=== PATIENT | male | born 1950 | race Caucasian/White ===

== ENCOUNTER 2024-12-04 08:30 | Emergency (ER) | payer MEDICARE, SELFPAY ==
[2024-12-04 08:35] VITALS: BP 160/104; PULSE 68; TEMP 36.6; O2SAT 98; BMI 31.3
--- NOTE | 2024-12-04 08:53 | CT_ITS ---
The [address] [address] Patient Name: ESTRELLA MARTINEZ MRN: [id number] date: 1950 Sex: M Assigned Patient Location: ED.MAIN Current Patient Location: ED.MAIN Accession/Order Number: [id number] Exam Date: 12/04/2024 10:12 Report Date: 12/04/2024 10:16 At the request of: LINDSAY YIN MD Procedure: CT abdomen pelvis wo con CT ABDOMEN AND PELVIS WITHOUT INTRAVENOUS CONTRAST: CLINICAL HISTORY: left flank pain, r/o stone COMPARISON: None TECHNIQUE: Spiral images were obtained through the abdomen and pelvis without intravenous contrast. This CT exam was performed using one or more following dose reduction techniques: Automated exposure control, adjustment of the mA and/or kV according to patient size, or use of iterative reconstruction technique. FINDINGS: Lung Bases: [Mildly irregular atelectasis or scarring. Lung bases otherwise grossly clear.] Coronary artery disease. Organs:Mild left-sided hydroureteronephrosis caused by a left-sided proximal ureteral calculus at level of left ureteral pelvic junction this measures 4 x 6 mm in size. Additional left lower pole calculus 2 to 3 mm in size, nonobstructive. 2 mm right lower pole calculus. No right-sided hydronephrosis. Otherwise kidneys symmetric in size. Otherwise liver, spleen, adrenals, pancreas unremarkable. GI: Mild retained stool throughout the colon. No bowel obstruction. Colonic diverticulosis. Appendix unremarkable.[ Pelvis:[Bladder unremarkable. Prostate mildly enlarged. Small fat-containing inguinal hernias.] Peritoneum/Retroperitoneum:No free air or free fluid. Moderate plaque involving the nonaneurysmal aorta[ Abd wall/Bones:Anterolisthesis L4-L5 noted. Multilevel facet arthropathy noted.[ CT/CT abdomen pelvis wo con IMPRESSION: Mild left-sided hydronephrosis caused by a left ureteral pelvic junction calculus 6 x 4 mm in size. Additional bilateral calculi, nonobstructive. Impression dictated by: Connor Madsen M.D. 12/04/2024 10:16 AM Dictation Location: [place] [address] Electronically authenticated by: [id number] Y Date: 12/04/2024 10:16
--- NOTE | 2024-12-04 08:53 | ED.GENADUL1 ---
HPI HPI - General Adult General Chief complaint: Back Pain/Injury Stated complaint: L SIDE FLANK PAIN Time Seen by Provider: 12/04/24 08:48 Source: patient Mode of arrival: walk-in History of Present Illness HPI narrative: 74-year-old male presents to the emergency department for left flank pain. It started again this morning. On November 23 he was in [place] and was diagnosed with 3 kidney stones and he passed 1. Now he is This left flank pain which is moderate and continuous. No nausea. No injury or gross hematuria. No fever or vomiting. Related Data Home Medications ?Medication ?Instructions ?Recorded ?Confirmed atorvastatin 40 mg tablet 40 mg PO DAILY 12/04/24 12/04/24 indomethacin 25 mg capsule 25 mg PO BID 12/04/24 12/04/24 metoprolol succinate 25 mg 25 mg PO DAILY 12/04/24 12/04/24 tablet,extended release 24 hr rivaroxaban 20 mg tablet (Xarelto) 20 mg PO DAILY 12/04/24 12/04/24 timolol 0.5 % eye drops (Betimol) 1 drp ophthalmic (eye) DAILY 12/04/24 12/04/24 Previous Rx's ?Medication ?Instructions ?Recorded ondansetron 4 mg disintegrating 4 mg PO Q6H PRN nausea and 12/04/24 tablet vomiting #20 tabs oxycodone-acetaminophen 5 mg-325 1 tab PO Q6H PRN pain 5 days #20 12/04/24 mg tablet (Percocet) tabs tamsulosin 0.4 mg capsule (Flomax) 0.4 mg PO DAILY #7 caps 12/04/24 Allergies Allergy/AdvReac Type Severity Reaction Status Date / Time rubber, unspecified Allergy rash Verified 12/04/24 08:40 Opioid HPI Opioid Management Most Recent Opioid Data: Last AUG Pain Assessment 12/04/24, 08:58 Review of Systems ROS Narrative A ten point review of systems is negative except as noted above. PFSH PFSH Social History Little interest or pleasure in doing things: not at all Feeling down, depressed, or hopeless: not at all Exam Narrative Exam Narrative: Nurses note and vital signs reviewed and patient is not hypoxic. General: The patient appears in no acute distress. He is hard of hearing Skin: Warm, dry, no pallor noted. There is no rash noted. Head: Normocephalic, atraumatic Eye: Normal conjunctiva, no drainage Ears, Nose, Mouth, and Throat: oral mucosa is moist. Nares patent. Cardiovascular: Regular Rate and Rhythm Respiratory: Patient is in no distress, no accessory muscle use, lungs are clear to auscultation, no wheezing, rales or rhonchi Back: non-tender, no CVA tenderness bilaterally to percussion. GI: Soft and nontender Musculoskeletal: The patient has no evidence of calf tenderness, no pitting edema, symmetrical pulses noted bilaterally Neurological: Awake and alert Psychiatric: Cooperative Constitutional Vital Signs, click to edit/add: Last Vital Signs Temp 98 F 12/04/24 08:35 Pulse 68 12/04/24 08:35 Resp 16 12/04/24 12:20 BP 172/90 H 12/04/24 12:20 Pulse Ox 96 12/04/24 12:20 O2 Del Method Room Air 12/04/24 12:20 Course Vital Signs Vital signs: Vital Signs Temperature 98 F 12/04/24 08:35 Pulse Rate 68 12/04/24 08:35 Respiratory Rate 20 12/04/24 08:35 Blood Pressure 160/104 H 12/04/24 08:35 Pulse Oximetry 98 12/04/24 08:35 Oxygen Delivery Method Room Air 12/04/24 08:35 Temperature 98 F 12/04/24 08:35 Pulse Rate 68 12/04/24 08:35 Respiratory Rate 16 12/04/24 12:20 Blood Pressure 172/90 H 12/04/24 12:20 Pulse Oximetry 96 12/04/24 12:20 Oxygen Delivery Method Room Air 12/04/24 12:20 Medical Decision Making MDM Narrative Medical decision making narrative: Proximal left-sided stone is identified. We have gotten his pain under control and he is being discharged home on Flomax and Percocet and Zofran. He will follow-up with his urologist in [place] or return here if symptoms worsen. Treatment diagnosis and follow-up were discussed with the patient and his . Differential Diagnosis Differential Diagnosis: Kidney stone, urinary tract infection Lab Data Lab results reviewed: Yes I reviewed the patient's lab results Labs: Lab Results 12/04/24 12/04/24 Range/Units 08:46 09:25 WBC 10.3 (4.0-11.0) 10^3/uL RBC 5.15 (4.70-6.10) 10^6/uL Hgb 15.7 (14.0-18.0) g/dL Hct 47.2 (42.0-54.0) % MCV 91.7 (80.0-94.0) fL MCH 30.5 (25.9-34.0) pg MCHC 33.3 (29.9-35.2) g/dL RDW 13.4 (11.0-15.0) % Plt Count 176 (150-450) 10^3/uL MPV 9.7 (9.5-13.5) fL Neut % (Auto) 79.8 H (43.0-75.0) % Lymph % (Auto) 7.8 L (20.5-60.0) % [place] % (Auto) 10.0 (1.7-12.0) % Eos % (Auto) 1.4 (0.9-7.0) % Baso % (Auto) 0.6 (0.2-2.0) % Neut # (Auto) 8.2 H (1.4-6.5) 10^3/uL Lymph # (Auto) 0.8 L (1.2-3.8) 10^3/uL [place] # (Auto) 1.0 H (0.3-0.8) 10^3/uL Eos # (Auto) 0.1 (0.0-0.7) 10^3/uL Baso # (Auto) 0.1 (0.0-0.1) 10^3/uL Abs Immat Gran (auto) 0.04 H (0.00-0.03) 10^3/uL Imm/Tot Granulo (auto) 0.4 (0.0-0.5) % Sodium 140 (136-145) mmol/L Potassium 4.7 (3.5-5.1) mmol/L Chloride 103 (98-107) mmol/L Carbon Dioxide 27.8 (21.0-32.0) mmol/L Anion Gap 13.9 BUN 21.0 H (7.0-18.0) mg/dL Creatinine 1.21 (0.70-1.30) mg/dL Est GFR ( Amer) >60 (>=60 mL/min/1.73m^2) Est GFR (Non-Af Amer) 59 L (>=60 mL/min/1.73m^2) BUN/Creatinine Ratio 17.4 Glucose 140 H (74-106) mg/dL Calcium 9.6 (8.5-10.1) mg/dL Urine Color Lt. yellow (YELLOW) Urine Clarity Clear (CLEAR) Urine pH 6.0 (5.0-9.0) Ur Specific [place] 1.020 (1.005-1.025) Urine Protein Negative (NEG/TRACE) mg/dL Urine Glucose (UA) Negative (NEGATIVE) mg/dL Urine Ketones Negative (NEGATIVE) mg/dL Urine Occult Blood Moderate A (NEGATIVE) Urine Nitrite Negative (NEGATIVE) Urine Bilirubin Negative (NEGATIVE) Urine Urobilinogen 0.2 (0.2-1.0) EU/dL Ur Leukocyte Esterase Negative (NEGATIVE) Urine RBC 10-20 A (0-2) #/HPF Urine WBC None seen (NONE SEEN) #/HPF Ur Squamous Epith Cells None seen (NONE/RARE) #/LPF Urine Crystals None seen (None Seen) #/HPF Urine Bacteria Trace A (NONE SEEN) #/HPF Urine Casts None seen (NONE SEEN) #/LPF Urine Mucus None seen (NONE SEEN) Ur Culture Indicated? No Imaging Data CT scan - abdomen: Radiologist's impression: ITS Impressions Abdomen/Pelvis CT 12/04/24 08:53 IMPRESSION: Mild left-sided hydronephrosis caused by a left ureteral pelvic junction calculus 6 x 4 mm in size. Additional bilateral calculi, nonobstructive. Impression dictated by: Connor Madsen M.D. 12/04/2024 10:16 AM Dictation Location: [place] [address] Electronically authenticated by: [id number] Y Date: 12/04/2024 10:16 Discharge Plan Discharge Chief Complaint: Back Pain/Injury Clinical Impression: Kidney stone Patient Disposition: Home, Self-Care Time of Disposition Decision: 11:56 Condition: Good Mode of Transportation: Private Vehicle Prescriptions / Home Meds: New oxycodone-acetaminophen [Percocet] 5-325 mg tablet 1 tab PO Q6H PRN (Reason: pain) 5 Days Qty: 20 0RF tamsulosin [Flomax] 0.4 mg capsule 0.4 mg PO DAILY Qty: 7 0RF ondansetron 4 mg tablet,disintegrating 4 mg PO Q6H PRN (Reason: nausea and vomiting) Qty: 20 0RF No Action indomethacin 25 mg capsule 25 mg PO BID Rx Instructions: administer with food or milk metoprolol succinate 25 mg tablet extended release 24 hr 25 mg PO DAILY atorvastatin 40 mg tablet 40 mg PO DAILY timolol [Betimol] 0.5 % drops 1 drp ophthalmic (eye) DAILY Xarelto 20 mg tablet 20 mg PO DAILY Rx Instructions: must administer with evening meal Print Language: Spanish Instructions: Kidney Stones (ED), How to Strain Your Urine (ED) Additional Instructions: Follow-up with your urologist. Return to ED if symptoms worsen. Referrals: ANNA COHEN [Physician, Unknown] - 1 week Discharge Date/Time: 12/04/24 12:21
[2024-12-04] MEDS: MORPHINE SULFATE 4 MG/ML VIAL IV ×2 (08:58→09:50)
[2024-12-04 09:11] LABS: Basophils Absolute Auto 0.1 10^3/uL (0.0-0.1); Basophils Percent Auto 0.6 % (0.2-2.0); Eosinophils Absolute Auto 0.1 10^3/uL (0.0-0.7); Eosinophils Percent Auto 1.4 % (0.9-7.0); Hematocrit 47.2 % (42.0-54.0); Hemoglobin 15.7 g/dL (14.0-18.0); Immature Granulocytes Abs Auto 0.04 10^3/uL (0.00-0.03); Immature Granulocytes Pct Auto 0.4 % (0.0-0.5); Lymphocytes Absolute Auto 0.8 10^3/uL (1.2-3.8); Lymphocytes Percent Auto 7.8 % (20.5-60.0); Mean Corpuscular HGB Conc 33.3 g/dL (29.9-35.2); Mean Corpuscular Hemoglobin 30.5 pg (25.9-34.0); Mean Corpuscular Volume 91.7 fL (80.0-94.0); Mean Platelet Volume 9.7 fL (9.5-13.5); Neutrophils Absolute Auto 8.2 10^3/uL (1.4-6.5); Neutrophils Percent Auto 79.8 % (43.0-75.0); Platelet Count 176 10^3/uL (150-450); Red Blood Count 5.15 10^6/uL (4.70-6.10); Red Cell Distribution Width 13.4 % (11.0-15.0); White Blood Count 10.3 10^3/uL (4.0-11.0)
[2024-12-04 09:19] LABS: Anion Gap 13.9; BUN Creatinine Ratio 17.4; Calcium 9.6 mg/dL (8.5-10.1); Carbon Dioxide 27.8 mmol/L (21.0-32.0); Chloride 103 mmol/L (98-107); Estimated GFR (African America >60 (>=60 mL/min/1.73m^2); Estimated GFR (Non-African Ame 59 (>=60 mL/min/1.73m^2); Glucose 140 mg/dL (74-106); Potassium 4.7 mmol/L (3.5-5.1); Sodium 140 mmol/L (136-145)
[2024-12-04 09:33] LABS: Bilirubin Urine NEGATIVE (NEGATIVE); Blood Urine MODERATE (NEGATIVE); Clarity Urine CLEAR (CLEAR); Color Urine LT. YELLOW (YELLOW); Glucose Urine UA NEGATIVE (NEGATIVE); Ketones Urine NEGATIVE (NEGATIVE); Leukocyte Esterase Urine NEGATIVE (NEGATIVE); Nitrite Urine NEGATIVE (NEGATIVE); Protein Urine NEGATIVE (NEG/TRACE); Urobilinogen Urine 0.2 EU/dL (0.2-1.0)
[2024-12-04 09:42] LABS: Bacteria Urine TRACE #/HPF (NONE SEEN); Cast Seen? NONE SEEN #/LPF (NONE SEEN); Crystals Seen? None Seen #/HPF (None Seen); Mucus Urine NONE SEEN (NONE SEEN); Squamous Epithelial Cell Urine NONE SEEN #/LPF (NONE/RARE); Urine Culture Indicated NO; WBC Urine NONE SEEN #/HPF (NONE SEEN)
[2024-12-04] MEDS: HYDROMORPHONE HCL 1 MG/ML CARTRIDGE IV (11:45)
[2024-12-04 12:20] VITALS: BP 172/90; O2SAT 96
== END 2024-12-04 12:21 | disposition home or self-care (01) ==
PROVIDERS: Emergency Provider Emergency Medicine
DX: N13.2 Hydronephrosis with renal and ureteral calculous obstruction (principal)
CPT/HCPCS: 36415; 74176; 80048; 81001; 85025; 96374; 96375; 96376; 99285; J1171; J2270